=== PATIENT | male | born 1980 | race American Indian/Alaskan Native ===

== ENCOUNTER 2021-08-05 08:48 | Emergency (ER) | payer SELFPAY ==
[2021-08-05] MEDS ORDERED: Naloxone 2 MG/2 ML Syringe ONE (09:03)
[2021-08-05] MEDS ORDERED: Sodium Chloride 0.9% 10 ML Syringe FLUSH PRN (09:03)
[2021-08-05] MEDS ORDERED: Sodium Chloride 0.9% 1,000 ML IV ONE (09:06)
[2021-08-05] MEDS ORDERED: Flumazenil 0.1 MG/ML 5 ML MDV IVPUSH ONE (09:06)
[2021-08-05] MEDS ORDERED: Naloxone 2 MG/2 ML Syringe IVPUSH ONE (09:06)
[2021-08-05 09:31] LABS: AMPHETAMINES,URINE POSITIVE (NEGATIVE); BARBITURATES,URINE NEGATIVE (NEGATIVE); BENZODIAZEPINE,URINE NEGATIVE (NEGATIVE); MDMA (ECSTASY), URINE NEGATIVE (NEGATIVE); METHADONE,URINE NEGATIVE (NEGATIVE); METHAMPHETAMINES,URINE POSITIVE (NEGATIVE); OPIATES,URINE NEGATIVE (NEGATIVE); OXYCODONE,URINE NEGATIVE (NEGATIVE); PHENCYCLIDINE,URINE NEGATIVE (NEGATIVE); TCA,URINE NEGATIVE (NEGATIVE)
[2021-08-05 09:43] LABS: ANION GAP 16.3 mEq/L (7-13); CHLORIDE,CL 106 mmol/L (98-107); SODIUM,NA 144 mmol/L (136-145)
[2021-08-05] MEDS ORDERED: Flumazenil 0.1 MG/ML 5 ML MDV ONE (09:45)
[2021-08-05] MEDS ORDERED: MVI, Adult with Vitamin K 10 ML, Thiamine 100 MG, Folic Acid 1 MG in Lactated Ringers 1... IV ONE ×4 (10:08)
[2021-08-05] MEDS ORDERED: Diphtheria,Pertussis(Acell),Tetanus Vaccine 0.5 ML Syringe IM ONE (10:08)
== END 2021-08-05 13:46 | disposition home or self-care (01) ==
LOC: DL.ED 08:48
DX: S02.2XXA Fracture of nasal bones, initial encounter for closed fracture (principal); F19.920 Other psychoactive substance use, unspecified with intoxication, uncomplicated; F15.10 Other stimulant abuse, uncomplicated; F12.10 Cannabis abuse, uncomplicated; F10.10 Alcohol abuse, uncomplicated; Z23 Encounter for immunization; X58.XXXA Exposure to other specified factors, initial encounter
CPT/HCPCS: 36415; 70450; 70486; 71045; 72125; 80053; 80305; 80307; 81001; 82150; 83690; 84484; 85007; 85025; 85048; 85610; 85730; 90471; 90715; 93005; 96365; 96375; 99285; J2310; J3411; J3490; J7030; J7120

== ENCOUNTER 2022-02-01 14:33 | Emergency (ER) | payer MEDICAID ==
[2022-02-25 16:10] LABS: ANION GAP 23.9 mEq/L (7-13); CHLORIDE,CL 102 mmol/L (98-107); ESTIMATED GFR 61 mL/min (>=60); SODIUM,NA 140 mmol/L (136-145)
[2022-02-25 16:11] LABS: ACETAMINOPHEN 0 ug/mL (10-30 (Therapeutic))
[2022-02-25 16:12] LABS: PTT,PARTIAL THROMBOPLSTIN TIME 24.3 SEC (22.0-34.0)
[2022-02-25 16:14] LABS: AMPHETAMINES,URINE NEGATIVE (NEGATIVE); BARBITURATES,URINE NEGATIVE (NEGATIVE); BENZODIAZEPINE,URINE NEGATIVE (NEGATIVE); MDMA (ECSTASY), URINE NEGATIVE (NEGATIVE); METHADONE,URINE NEGATIVE (NEGATIVE); METHAMPHETAMINES,URINE NEGATIVE (NEGATIVE); OPIATES,URINE NEGATIVE (NEGATIVE); OXYCODONE,URINE NEGATIVE (NEGATIVE); PHENCYCLIDINE,URINE NEGATIVE (NEGATIVE); TCA,URINE NEGATIVE (NEGATIVE)
== END 2022-02-01 16:28 ==
LOC: DL.ED 14:33
DX: T68.XXXA Hypothermia, initial encounter (principal); F10.129 Alcohol abuse with intoxication, unspecified; E87.0 Hyperosmolality and hypernatremia; Z02.89 Encounter for other administrative examinations
CPT/HCPCS: 36415; 80053; 80143; 80179; 80305-QW; 80307; 81001; 84484; 85025; 85610; 85730; 96360; 99283; 99284-25; C1758

== ENCOUNTER 2022-03-03 10:27 | Emergency (ER) | payer MEDICAID ==
[2022-03-03] MEDS ORDERED: Sodium Chloride 0.9% 10 ML Syringe FLUSH PRN (10:45)
[2022-03-03] MEDS ORDERED: MVI, Adult with Vitamin K 10 ML, Thiamine 100 MG, Folic Acid 1 MG in Lactated Ringers 1... IV ONE ×4 (10:46)
[2022-03-03] MEDS ORDERED: Iopamidol 612 MG/ML 100 ML Bottle IVPUSH ONE (10:50)
[2022-03-03 11:17] LABS: ANION GAP 17.8 mEq/L (7-13)
[2022-03-03] MEDS ORDERED: Bacitracin Oint 1 GM U/D Packet TOP ONE (12:15)
[2022-03-03 12:30] LABS: AMPHETAMINES,URINE POSITIVE (NEGATIVE); BARBITURATES,URINE NEGATIVE (NEGATIVE); BENZODIAZEPINE,URINE NEGATIVE (NEGATIVE); MDMA (ECSTASY), URINE NEGATIVE (NEGATIVE); METHADONE,URINE NEGATIVE (NEGATIVE); METHAMPHETAMINES,URINE POSITIVE (NEGATIVE); OPIATES,URINE NEGATIVE (NEGATIVE); OXYCODONE,URINE NEGATIVE (NEGATIVE); PHENCYCLIDINE,URINE NEGATIVE (NEGATIVE); TCA,URINE NEGATIVE (NEGATIVE)
[2022-03-06 13:46] LABS: C.TRACHOMATIS BY TMA Negative (Negative); N.GONORRHOEAE BY TMA Negative (Negative)
== END 2022-03-03 13:00 | disposition home or self-care (01) ==
LOC: DL.ED 10:27
DX: S53.401A Unspecified sprain of right elbow, initial encounter (principal); S40.021A Contusion of right upper arm, initial encounter; S00.03XA Contusion of scalp, initial encounter; S80.812A Abrasion, left lower leg, initial encounter; S80.811A Abrasion, right lower leg, initial encounter; S40.812A Abrasion of left upper arm, initial encounter; M25.461 Effusion, right knee; F10.121 Alcohol abuse with intoxication delirium; Y04.0XXA Assault by unarmed brawl or fight, initial encounter; Y93.67 Activity, basketball
CPT/HCPCS: 36415; 70450; 71260; 72125; 73060; 73562; 74177; 80053; 80305; 80307; 81001; 82150; 83690; 85025; 87491; 87563; 87591; 96365; 99284; J3411; J3490; J7120; Q9967

== ENCOUNTER 2022-06-14 21:46 | Emergency (ER) | payer MEDICAID | END 2022-06-14 23:05 | LOC: DL.ED 21:46 | DX: Z02.89 Encounter for other administrative examinations (principal); I10 Essential (primary) hypertension; Z20.822 Contact with and (suspected) exposure to COVID-19; Z28.310 Unvaccinated for COVID-19 | CPT/HCPCS: 99282; 99283; U0002 ==

== ENCOUNTER 2022-09-21 22:01 | Emergency (ER) | payer MEDICAID ==
[2022-09-22] MEDS ORDERED: Silver Sulfadiazine 1% Crm 50 GM Tube TOP ONE (00:23)
[2022-09-22] MEDS ORDERED: Ketorolac 30 MG/ML SDV IM ONE (00:23)
== END 2022-09-22 00:56 ==
LOC: DL.ED 22:01
DX: T22.211A Burn of second degree of right forearm, initial encounter (principal); I10 Essential (primary) hypertension; Z72.0 Tobacco use; X15.0XXA Contact with hot stove (kitchen), initial encounter
CPT/HCPCS: 96372; 99282; 99283; A9270-GY; J1885

== ENCOUNTER 2023-04-06 05:28 | Emergency (ER) | payer MEDICAID ==
[2023-04-06] MEDS ORDERED: Ketorolac 30 MG/ML SDV IVPUSH ONE (05:43)
[2023-04-06] MEDS ORDERED: Morphine 4 MG/ML Syringe IVPUSH ONE (05:43)
[2023-04-06] MEDS ORDERED: Ondansetron 4 MG/2 ML SDV IVPUSH ONE (05:43)
[2023-04-06 05:51] LABS: BASOPHILS PERCENT AUTO 0.2 % (0.0-1.0); EOSINOPHILS PERCENT AUTO 0.7 % (1.0-3.0); HEMATOCRIT 42.9 % (40.0-54.0); HEMOGLOBIN 14.5 g/dL (14.0-18.0); LYMPHOCYTES PERCENT AUTO 48.6 % (20.5-50.1); MEAN CORPUSCULAR HGB CONC 33.8 g/dL (33.0-35.0); MEAN CORPUSCULAR VOLUME 88.8 fL (80-100); MONOCYTES PERCENT AUTO 7.5 % (2-8); PLATELET COUNT,PLT 272 10^3/uL (150-450); RED BLOOD CELL COUNT 4.83 10^6/uL (4.6-6.2); WHITE BLOOD CELL COUNT,WBC 12.8 10^3/uL (5.0-10.0)
[2023-04-06] MEDS ORDERED: LORazepam 2 MG/ML SDV IVPUSH ONE (05:51)
[2023-04-06] MEDS ORDERED: Lactated Ringers 1,000 ML IV ONE (05:54)
[2023-04-06 06:06] LABS: A/G RATIO 0.9; ALANINE AMINOTRANSFERASE,ALT 147 U/L (16-63); ALBUMIN 3.5 g/dL (3.4-5.0); ALKALINE PHOSPHATASE 134 U/L (46-116); ANION GAP 15.5 mEq/L (7-13); ASPARTATE AMNIOTRANSFERASE,AST 61 U/L (15-37); BILIRUBIN TOTAL 0.3 mg/dL (0.2-1.0); BLOOD UREA NITROGEN,BUN 10 mg/dL (7-18); BUN/CREATININE RATIO 10.4 (No establ ref range); CARBON DIOXIDE,CO2 22 mmol/L (21-32); CHLORIDE,CL 104 mmol/L (98-107); CREATININE 0.96 mg/dL (0.70-1.30); ETHANOL BLOOD MEDICAL 287 mg/dL (0); GLUCOSE RANDOM 152 mg/dL (70-99); POTASSIUM,K 3.5 mmol/L (3.5-5.1); PROTEIN TOTAL,TP 7.5 g/dL (6.4-8.2); SODIUM,NA 138 mmol/L (136-145)
[2023-04-06 06:08] LABS: ESTIMATED GFR 102 mL/min (>=60)
[2023-04-06] MEDS ORDERED: ceFAZolin 1 GM Vial IVPUSH ONE (06:26)
[2023-04-06] MEDS ORDERED: fentaNYL 100 MCG/2 ML SDV IVPUSH ONE (07:04)
[2023-04-06] MEDS ORDERED: Ondansetron 4 MG/2 ML SDV IV ONE (07:05)
[2023-04-06] MEDS ORDERED: Ketamine 500 mg/10 ML MDV IV ONE (07:10)
== END 2023-04-06 08:13 ==
LOC: DL.ED 05:28
DX: S92.902B Unspecified fracture of left foot, initial encounter for open fracture (principal); S93.325A Dislocation of tarsometatarsal joint of left foot, initial encounter; S99.922A Unspecified injury of left foot, initial encounter; F10.929 Alcohol use, unspecified with intoxication, unspecified; I10 Essential (primary) hypertension; X58.XXXA Exposure to other specified factors, initial encounter; Y93.02 Activity, running
CPT/HCPCS: 36415; 73600-LT; 73620-LT; 80053; 80307; 85025; 96361; 96374; 96375; 96376; 99285; 99285-25; J0690; J1885; J2060; J2270; J2405; J3010; J3490; J7120